=== PATIENT | female | born 1940 | race Caucasian/White ===

== ENCOUNTER 2017-02-04 10:13 | Observation (INO) | payer OTHER ==
[~2017-02-04] VITALS: Ht 152.4 cm; Wt 69.0 kg
[~2017-02-04 10:13] MED LIST: MOTRIN600 MG PO; NOHOMEMEDS; PERCOCET 5/31 TABLET PO
[2017-02-04 10:57] LABS: HEMATOCRIT 37.2 % (36.0-46.0); MCH 28.6 PG (29.0-34.0); MCHC 33.1 G/DL (30.0-36.0); MCV 86.5 FL (83-99); PLATELET COUNT 277 K/uL (156-360); RBC DIS.WIDTH-CV 12.2 % (11.8-14.6); RBC DIS.WIDTH-SD 38.7 % (39-53); WHITE BLOOD COUNT 8.1 K/uL (4.1-10.2)
[2017-02-04 11:05] LABS: CHLORIDE 101 mEq/L (99-109); POTASSIUM 4.2 mEq/L (3.7-5.4); SODIUM 137 mEq/L (136-147)
[2017-02-04 11:07] LABS: GLUCOSE 117 mg/dL (70-99)
[2017-02-04 11:08] LABS: ANION GAP 11 MEQ/L (2-14)
[2017-02-04 11:11] LABS: GFR ESTIMATE (CALCULATED) > 59 mL/min/
[2017-02-04 11:12] LABS: UREA NITROGEN (BUN) 6 mg/dL (9-23)
[2017-02-04] MEDS ORDERED: ODOR FREE GARL1 EACH PO (13:34)
[2017-02-04] MEDS ORDERED: CRANBERRY TABL1 EACH PO (13:34)
[2017-02-04] MEDS ORDERED: LO-DOSE ASPIRIN81 M1 PO (13:34)
[2017-02-04] MEDS ORDERED: MILK THISTLE500 MG PO (13:35)
[2017-02-04 14:41] LABS: HEMATOCRIT 35.8 % (36.0-46.0); MCH 28.5 PG (29.0-34.0); MCV 86.5 FL (83-99); MEAN PLAT.VOLUME 10.1 uM^3 (9.5-12.4); PLATELET COUNT 254 K/uL (156-360); RBC DIS.WIDTH-CV 12.1 % (11.8-14.6); RBC DIS.WIDTH-SD 38.5 % (39-53); RED BLOOD COUNT 4.14 M/uL (3.80-5.20); WHITE BLOOD COUNT 7.4 K/uL (4.1-10.2)
[2017-02-04 15:02] VITALS: BP 172/88
[2017-02-04 15:27] LABS: FIBRINOGEN 473 mg/dL (150-450)
[2017-02-04 17:35] LABS: FACTOR Xa INHIBITION (LMWH) 1.25 IU/mL
[2017-02-04 19:05] VITALS: BP 144/75
[2017-02-05 00:08] VITALS: BP 123/72
[2017-02-05 01:47] LABS: PROTHROMBIN TIME 11.5 SEC (10.2-12.9)
[2017-02-05 01:50] LABS: PTT 68.5 SEC (25-37)
[2017-02-05 03:53] VITALS: BP 148/67
[2017-02-05 07:38] VITALS: BP 145/69
[2017-02-05 08:52] LABS: HEMATOCRIT 36.5 % (36.0-46.0); MCH 27.8 PG (29.0-34.0); MCHC 32.1 G/DL (30.0-36.0); MCV 86.7 FL (83-99); MEAN PLAT.VOLUME 9.9 uM^3 (9.5-12.4); PLATELET COUNT 290 K/uL (156-360); RBC DIS.WIDTH-CV 12.4 % (11.8-14.6); RBC DIS.WIDTH-SD 39.3 % (39-53); RED BLOOD COUNT 4.21 M/uL (3.80-5.20)
[2017-02-05] MEDS ORDERED: XARELTO1 EACH PO (09:07)
[2017-02-05 11:50] LABS: TROP-I INTERPRETATION NEGATIVE; TROPONIN-I < 0.01 ng/mL (0.0-0.30)
[2017-02-05 16:23] VITALS: BP 160/79
[2017-02-06 03:32] LABS: PROTEIN C FUNCTIONAL ACTIVITY+ 171 % (70-180)
[2017-02-06 04:03] LABS: DRVVT Mixing Study Interp Not Indicated (()); dRVVT Screen 34 sec (<=45)
[2017-02-06 04:35] LABS: ADD PTT REFLEX? Y; PTT-LA 145 sec (<=40)
[2017-02-07 13:29] LABS: Protein S, Free 190 % normal (50-147)
[2017-02-08 10:36] LABS: ANTITHROMBIN III ACTIVITY+ 85 % activi (80-120)
[2017-02-09 15:03] LABS: ANTITHROMBIN III ACTIVITY+ 99 (80-120); DRVVT Mixing Study Interp Not Indicated (()); PROTEIN C FUNCTIONAL ACTIVITY+ 166 % (70-180); PTT-LA 32 sec (<=40); Protein S, Free >200 % normal (50-147); Thrombosis Consult Level Limited (()); dRVVT Screen 37 sec (<=45)
== END 2017-02-05 18:09 | disposition home or self-care (01) ==
LOC: EME 10:13 → 5SOUTH 13:39 → EDOF 13:39 → ENRESERV 13:43 → CANRESERV 13:50 → ENRESERV 13:50 → 5SOUTH 14:41
PROVIDERS: Hospitalist; Physician Assistant
DX: I26.99 Other pulmonary embolism without acute cor pulmonale (principal); I82.432 Acute embolism and thrombosis of left popliteal vein; R03.0 Elevated blood-pressure reading, without diagnosis of hypertension; Z80.0 Family history of malignant neoplasm of digestive organs
CPT/HCPCS: 71275; 80048; 81240 90; 81241 90; 83090 90; 83880; 84484; 85027; 85240 90; 85300 90; 85303 90; 85305 90; 85306 90; 85384; 85520; 85597 90; 85610; 85613 90; 85730; 85730 90; 86146 90; 86147 90; 93005; 99281; 99285; G0378; J7030